=== PATIENT | female | born 1975 | race Two or more races ===

== ENCOUNTER 2024-10-25 09:28 | Outpatient (CLI) | payer OTHER ==
[2024-10-25 10:06] LABS: URINE APPEARANCE Clear; URINE BILIRRUBIN Negative (NEGATIVE); URINE BLOOD Negative; URINE COLOR Dark Yellow; URINE GLUCOSE Negative (NEGATIVE); URINE KETONE Trace (NEGATIVE); URINE LEUKOCYTE Small; URINE NITRATE Negative; URINE PROTEIN Trace (NEGATIVE); URINE UROBILINOGEN 1.0 E.U./dl
[2024-10-25 10:11] LABS: BASO % 0.4 % (0.1-1.2); EOS # 0.10 (0.04-0.54); EOS % 1.3 % (0.7-7.0); LYMPH # 1.38 (1.18-3.74); LYMPH % 17.5 % (19.3-53.1); MEAN PLATELET VOLUME 9.30 fl (9.4-12.4); MONO # 0.49 (0.24-0.82); MONO % 6.2 % (4.7-12.5); NEUT # 5.86 (1.56-6.13); NEUT % 74.3 % (34.0-71.1); RED CELL DISTRIBUTION WIDTH 12.7 % (11.6-14.4)
[2024-10-25 10:13] LABS: URINE BACTERIA 3090.9 uL (0.0-1933); URINE EPITHELIAL CELLS 61.8 uL (0.0-38.8); URINE RBC 43.1 uL (0.0-20.8); URINE WBC 40.4 uL (0.0-23.2)
[2024-10-25 10:26] LABS: URINE CAST 0.14 uL (0.0-1.40)
[2024-10-25 10:49] LABS: ALT/SGPT 23.0 U/L (12-78); AST/SGOT 15.0 U/L (15-37); BILIRUBIN TOTAL 0.7 mg/dL (0.3-1.2); BUN CREA RATIO 19.0 (7.0-25.0); CHOL HDL RATIO 2.7 (0-5.0); CREATININE SERUM 0.81 mg/dL (0.55-1.02); GFR 75.15; GLOBULINA 3.5 G/DL (2.4-3.5); GLUCOSE FASTING 77.0 mg/dL (65-100); HDL 52.0 mg/dl (40-60); LDL 68.0 mg/dl (0-130); OSMOLALITY SERUM 277.0 MOSM/KG (275-295); T4 FREE 0.94 NG/ML (0.76-1.46); TSH 0.594 uIU/mL (0.358-3.74); VLDL 18.0 (0-39)
== END 2024-10-25 09:31 | disposition home or self-care (01) ==
LOC: LAB 09:28
DX: Z12.11 Encounter for screening for malignant neoplasm of colon (principal); E11.65 Type 2 diabetes mellitus with hyperglycemia; I10 Essential (primary) hypertension; E78.5 Hyperlipidemia, unspecified; E03.9 Hypothyroidism, unspecified; D64.9 Anemia, unspecified; E55.9 Vitamin D deficiency, unspecified